=== PATIENT | female | born 1960 | race Caucasian/White ===

== ENCOUNTER 2016-11-17 15:57 | Emergency (ER) | payer SELFPAY ==
[~2016-11-17] VITALS: Ht 162.5 cm; Wt 49.9 kg
[~2016-11-17 15:57] MED LIST: 'PARAFON FORTE500 M1 PO; FLEXERIL10 MG PO; HYDROCODONE BIT1 T11 PO; MOTRIN800 MG PO; PERCOCET 325 MG1 TA2 PO; PREDNICOT20 MG PO; PREDNISONE10 MG PO; TESSALON PERLE200 MG PO; ZITHROMAX Z PA250 MG PO
[2016-11-17] MEDS ORDERED: AMOXICILLIN500 M2 PO (17:09)
== END 2016-11-17 22:03 | disposition home or self-care (01) ==
LOC: ED 15:57
DX: J03.90 Acute tonsillitis, unspecified (principal); F17.200 Nicotine dependence, unspecified, uncomplicated; Z88.6 Allergy status to analgesic agent; Z88.8 Allergy status to other drugs, medicaments and biological substances

== ENCOUNTER 2017-01-27 18:19 | Emergency (ER) | payer SELFPAY ==
[~2017-01-27] VITALS: Wt 52.2 kg
[~2017-01-27 18:19] MED LIST changes: +AMOXICILLIN500 M2 PO
[2017-01-27] MEDS ORDERED: NAPROSYN500 MG PO (18:59)
[2017-01-27] MEDS ORDERED: NORCO 5-325 TA1 EACH PO (20:13)
== END 2017-01-27 22:56 | disposition home or self-care (01) ==
LOC: ED 18:19
DX: S50.11XA Contusion of right forearm, initial encounter (principal); S20.211A Contusion of right front wall of thorax, initial encounter; R03.0 Elevated blood-pressure reading, without diagnosis of hypertension; F17.200 Nicotine dependence, unspecified, uncomplicated; Z88.5 Allergy status to narcotic agent; Z88.8 Allergy status to other drugs, medicaments and biological substances; W01.0XXA Fall on same level from slipping, tripping and stumbling without subsequent striking against object, initial encounter; Y93.89 Activity, other specified; Y92.89 Other specified places as the place of occurrence of the external cause; Y99.9 Unspecified external cause status

== ENCOUNTER 2018-04-13 12:02 | Emergency (ER) | payer SELFPAY ==
[~2018-04-13] VITALS: Ht 162.5 cm; Wt 59.0 kg
[~2018-04-13 12:02] MED LIST changes: +NAPROSYN500 MG PO; +NORCO 5-325 TA1 EACH PO
[2018-04-13] MEDS ORDERED: CLARITIN10 MG PO (12:55)
[2018-04-13] MEDS ORDERED: PREDNISONE10 MG PO (12:55)
[2018-04-13] MEDS ORDERED: FLONASE ALLERG9.9 ML NAS (12:55)
== END 2018-04-13 14:15 | disposition home or self-care (01) ==
LOC: ED 12:02
DX: B34.9 Viral infection, unspecified (principal); R03.0 Elevated blood-pressure reading, without diagnosis of hypertension; F17.200 Nicotine dependence, unspecified, uncomplicated; Z88.5 Allergy status to narcotic agent; Z88.8 Allergy status to other drugs, medicaments and biological substances; Z79.2 Long term (current) use of antibiotics; Z79.899 Other long term (current) drug therapy

== ENCOUNTER 2024-12-04 14:03 | Emergency (ER) | payer SELFPAY ==
[~2024-12-04] VITALS: Ht 162.5 cm; Wt 54.4 kg
[~2024-12-04 14:03] MED LIST changes: +CLARITIN10 MG PO; +FLONASE ALLERG9.9 ML NAS
[2024-12-04] MEDS ORDERED: Albuterol Sulf/Ipratropium 3 ML VIAL NEB ONE (14:55)
[2024-12-04 15:09] LABS: BASO # 0.1 10*3/uL (0.0-0.1); BASO % 0.4 % (0.0-1.0); EOS # 0.1 10*3/uL (0.0-0.4); EOS % 0.9 % (1.0-4.0); MEAN CELL VOLUME 91.1 fl (81.0-99.0); MEAN CORPUSCULAR HGB 31.0 pg (27.0-31.0); MEAN PLATELET VOLUME 10.1 fl (9.6-12.3); MONO # 1.1 10*3/uL (0.1-1.0); MONO % 9.9 % (3.0-9.0); NEUT # 7.6 10*3/uL (2.3-7.9); NEUT % 65.8 % (47.0-73.0); NUCLEATED RED BLOOD CELL 0.0 % (0.0-0.0); NUCLEATED RED BLOOD CELL 0.0 10*3/uL (0.0-0.0); PLATELET COUNT AUTOMATED 299 10*3/uL (130-400); RED CELL DISTRI WIDTH 12.6 % (0-14.5)
[2024-12-04 15:29] LABS: BUN 15 mg/dl (9-23)
[2024-12-04] MEDS ORDERED: AEROCHAMBER MV1 EACH MC (17:31)
[2024-12-04] MEDS ORDERED: PREDNISONE20 M1 PO (17:31)
[2024-12-04] MEDS ORDERED: VIBRAMYCIN100 MG PO (17:31)
[2024-12-04] MEDS ORDERED: VENT7GM INH (17:31)
== END 2024-12-04 17:37 | disposition home or self-care (01) ==
LOC: ED 14:03
PROVIDERS: Emergency Medicine
DX: J18.9 Pneumonia, unspecified organism (principal); J40 Bronchitis, not specified as acute or chronic; Z20.822 Contact with and (suspected) exposure to COVID-19; Z88.5 Allergy status to narcotic agent; Z88.8 Allergy status to other drugs, medicaments and biological substances